=== PATIENT | male | born 1940 | race Caucasian/White ===

== ENCOUNTER 2016-12-05 17:00 | Inpatient (IN) | payer MEDICARE ==
[~2016-12-05 17:00] MED LIST: ACETAMINOPHEN325 M2 PO; ACETAMINOPHEN500 M4 PO; ALDACTONE25 M1 PO; AMLODIPINE BESY10 M1 PO; ATORVASTATIN; ATORVASTATIN CA10 MG PO; BACTRIM DS TABL1 TAB PO; COLACE100 MG PO; COREG3.125 M1 PO; COUMADIN7.5 M1 PO; DIOVAN160 M PO; DIOVAN160 M1 PO; DIOVAN80 M1 PO; DOC-Q-LACE100 M1 PO; DOC-Q-LACE100 M2 PO; DOC-Q-LACE100 MG; DOCUSATE; FINASTERIDE5 M2 PO; FLOMAX0.4 M1 PO; FLONASE ALLERG9.9 ML; FUROSEMIDE40 M1 PO; FUROSEMIDE40 M2 PO; GABAPENTIN; GABAPENTIN300 M1 PO; GABAPENTIN300 MG PO; GLUCOPHAGE1000 M1 PO; GLUCOPHAGE1000 MG; GLUCOPHAGE1000 MG PO; GLUCOPHAGE500 M3 PO; IPRAT-ALBUT 0.5-3 ML IH; LASIX; LASIX40 MG; LATANOPROST2.5 ML EACH EYE; LEVOTHROID112 MCG PO; LEVOTHROID75 MCG PO; LEVOTHYROXINE; LEVOTHYROXINE112 MC3 PO; LEVOXYL50 MCG; LIPITOR10 M1 PO; LIPITOR10 MG; LIPITOR10 MG PO; METFORMIN HCL1000 MG PO; MINOCIN100 MG; MIRALAX17 G2 PO; NEURONTIN300 MG; NEURONTIN300 MG PO; NITROGLYCERIN0.4 M2 SL; NORCO 5/325 TAB1 TAB PO; NORVASC10 M1 PO; NORVASC10 MG PO; NYSTATIN1 EA10 TP; OMEPRAZOLE40 M2 PO; PEN-VEE K500 MG; SENOKOT-S TABL1 EACH PO; SMZ-TMP DS 800-1 TAB PO; TORSEMIDE100 M1 PO; ULTRAM50 M1 PO; WARFARIN SODIU7.5 M2 PO; XALATAN2.5 M1 EACH EYE; XALATAN2.5 ML OP; ZOFRAN4 M1 PO
[2016-12-05 18:04] LABS: BASO % 0.9 % (0-2); EOS % 1.3 % (0-7); EOSINOPHIL ABSOLUTE COUNT 0.1 tho/cmm (0.0-0.7); HCT-HEMATOCRIT 40.2 % (36.0-53.5); HGB-HEMOGLOBIN 12.4 gm/dl (13.5-17.0); IMMATURE GRANULOCYTES ABSOLUTE 0.02 tho/cmm (0-0.03); IMMATURE GRANULOCYTES PERCENT 0.4 % (0-0.3); LYMPH % 21.4 % (20-45); MCH (MEAN CORPUSCULAR HGB) 26.6 pg (28.0-32.0); MCHC MEAN CORPUSCULAR HGB CONC 30.8 % (32.0-36.0); MCV (MEAN CELL VOLUME) 86.3 fl (82.0-96.0); MEAN PLATELET VOLUME 10.6 cmc (9.4-12.4); MONO % 7.1 % (0-12); MONOCYTE ABSOLUTE COUNT 0.3 tho/cmm (0.0-1.2); NEUTROPHIL ABSOLUTE COUNT 3.2 tho/cmm (1.6-8.0); NEUTROPHIL-AUTOMATED 3.2 tho/cmm (1.6-8.0); NEUTROPHILS % 68.9 % (40-80); PLATELET COUNT 173 tho/cmm (150-450); RED BLOOD COUNT 4.66 mil/cmm (4.40-5.70); RED CELL DISTRIBUTION WIDTH 16.5 % (12.4-16.4); WHITE BLOOD COUNT 4.6 tho/cmm (4.0-10.0)
[2016-12-05 18:16] LABS: ANION GAP 13 mmol/L (0-20); BLOOD UREA NITROGEN 12 mg/dl (6-24); CALCIUM 8.4 mg/dl (8.5-10.5); CARBON DIOXIDE-VENOUS 26 mmol/L (22-32); CHLORIDE 106 mmol/l (96-110); CREATININE 0.89 mg/dl (0.60-1.30); GLUCOSE 156 mg/dL (70-110); POTASSIUM 4.3 mmol/L (3.7-5.1); SODIUM 141 mmol/L (135-145); eGFR VALUE FOR BLACK >90 mL/Min
[2016-12-05 18:37] LABS: INR 2.1 INR (0.9-1.1); PROTHROMBIN TIME 24.4 SECONDS (9.0-13.6)
[2016-12-05] MEDS ORDERED: GLUCOTROL XL2.5 M1 PO (18:39)
[2016-12-06 06:14] LABS: BASO % 0.5 % (0-2); EOS % 2.1 % (0-7); EOSINOPHIL ABSOLUTE COUNT 0.1 tho/cmm (0.0-0.7); HCT-HEMATOCRIT 40.1 % (36.0-53.5); HGB-HEMOGLOBIN 12.3 gm/dl (13.5-17.0); IMMATURE GRANULOCYTES ABSOLUTE 0.02 tho/cmm (0-0.03); IMMATURE GRANULOCYTES PERCENT 0.3 % (0-0.3); LYMPH % 19.1 % (20-45); LYMPH ABSOLUTE COUNT 1.1 tho/cmm (0.8-4.5); MCH (MEAN CORPUSCULAR HGB) 26.3 pg (28.0-32.0); MCHC MEAN CORPUSCULAR HGB CONC 30.7 % (32.0-36.0); MCV (MEAN CELL VOLUME) 85.9 fl (82.0-96.0); MEAN PLATELET VOLUME 10.9 cmc (9.4-12.4); MONO % 9.4 % (0-12); MONOCYTE ABSOLUTE COUNT 0.6 tho/cmm (0.0-1.2); NEUTROPHILS % 68.6 % (40-80); PLATELET COUNT 167 tho/cmm (150-450); RED BLOOD COUNT 4.67 mil/cmm (4.40-5.70); RED CELL DISTRIBUTION WIDTH 16.6 % (12.4-16.4); WHITE BLOOD COUNT 5.9 tho/cmm (4.0-10.0)
[2016-12-06 06:17] LABS: PROTHROMBIN TIME 23.6 SECONDS (9.0-13.6)
[2016-12-06 06:28] LABS: ALBUMIN 3.3 g/dl (3.5-5.0); ALKALINE PHOSPHATASE 114 U/L (33-138); ALT/SGPT 23 U/L (12-78); ANION GAP 12 mmol/L (0-20); AST/SGOT 13 U/L (10-40); BILIRUBIN,TOTAL 0.8 mg/dl (0.0-1.5); BLOOD UREA NITROGEN 14 mg/dl (6-24); CALCIUM 8.7 mg/dl (8.5-10.5); CARBON DIOXIDE-VENOUS 30 mmol/L (22-32); CHLORIDE 106 mmol/l (96-110); CREATININE 0.94 mg/dl (0.60-1.30); GLUCOSE 129 mg/dL (70-110); POTASSIUM 3.7 mmol/L (3.7-5.1); SODIUM 144 mmol/L (135-145); eGFR VALUE FOR BLACK >90 mL/Min
[2016-12-06] MEDS ORDERED: ZYLOPRIM100 M1 PO (13:39)
[2016-12-07 06:12] LABS: ANION GAP 12 mmol/L (0-20); BLOOD UREA NITROGEN 14 mg/dl (6-24); CALCIUM 8.5 mg/dl (8.5-10.5); CARBON DIOXIDE-VENOUS 32 mmol/L (22-32); CHLORIDE 100 mmol/l (96-110); CREATININE 1.01 mg/dl (0.60-1.30); GLUCOSE 118 mg/dL (70-110); POTASSIUM 3.5 mmol/L (3.7-5.1); SODIUM 140 mmol/L (135-145); eGFR VALUE FOR BLACK 83 mL/Min
[2016-12-08 05:11] LABS: ANION GAP 12 mmol/L (0-20); BLOOD UREA NITROGEN 17 mg/dl (6-24); CALCIUM 8.4 mg/dl (8.5-10.5); CARBON DIOXIDE-VENOUS 30 mmol/L (22-32); CHLORIDE 99 mmol/l (96-110); CREATININE 1.03 mg/dl (0.60-1.30); GLUCOSE 139 mg/dL (70-110); POTASSIUM 3.7 mmol/L (3.7-5.1); SODIUM 137 mmol/L (135-145); eGFR VALUE FOR BLACK 81 mL/Min
[2016-12-08 10:31] LABS: T4 (THYROXINE) 8.8 ug/dl (5.0-12.6)
[2016-12-08 10:33] LABS: TSH-THYROID STIMULATING HORM. 3.87 uIU/ml (0.40-3.80)
[2016-12-09 06:03] LABS: ALB/GLOB RATIO 0.9 (0.8-2.0); ALBUMIN 3.2 g/dl (3.5-5.0); ALKALINE PHOSPHATASE 111 U/L (33-138); ALT/SGPT 18 U/L (12-78); ANION GAP 10 mmol/L (0-20); AST/SGOT 14 U/L (10-40); BILIRUBIN,TOTAL 0.8 mg/dl (0.0-1.5); BLOOD UREA NITROGEN 20 mg/dl (6-24); CALCIUM 8.6 mg/dl (8.5-10.5); CARBON DIOXIDE-VENOUS 31 mmol/L (22-32); CHLORIDE 102 mmol/l (96-110); CREATININE 1.04 mg/dl (0.60-1.30); GLUCOSE 191 mg/dL (70-110); POTASSIUM 3.9 mmol/L (3.7-5.1); SODIUM 139 mmol/L (135-145); eGFR VALUE FOR BLACK 80 mL/Min
[2016-12-09 12:46] LABS: INR 1.4 INR (0.9-1.1); PROTHROMBIN TIME 16.4 SECONDS (9.0-13.6)
[2016-12-10 06:27] LABS: ANION GAP 8 mmol/L (0-20); BLOOD UREA NITROGEN 25 mg/dl (6-24); CALCIUM 8.6 mg/dl (8.5-10.5); CARBON DIOXIDE-VENOUS 35 mmol/L (22-32); CHLORIDE 100 mmol/l (96-110); CREATININE 1.04 mg/dl (0.60-1.30); GLUCOSE 159 mg/dL (70-110); INR 1.6 INR (0.9-1.1); POTASSIUM 3.6 mmol/L (3.7-5.1); PROTHROMBIN TIME 18.4 SECONDS (9.0-13.6); SODIUM 139 mmol/L (135-145); eGFR VALUE FOR BLACK 80 mL/Min
[2016-12-11 04:55] LABS: INR 1.6 INR (0.9-1.1); PROTHROMBIN TIME 19.4 SECONDS (9.0-13.6)
[2016-12-11 05:02] LABS: ANION GAP 12 mmol/L (0-20); BLOOD UREA NITROGEN 24 mg/dl (6-24); CALCIUM 8.4 mg/dl (8.5-10.5); CARBON DIOXIDE-VENOUS 30 mmol/L (22-32); CHLORIDE 101 mmol/l (96-110); CREATININE 0.93 mg/dl (0.60-1.30); GLUCOSE 170 mg/dL (70-110); POTASSIUM 3.9 mmol/L (3.7-5.1); SODIUM 139 mmol/L (135-145); eGFR VALUE FOR BLACK >90 mL/Min
[2016-12-12 04:54] LABS: INR 1.7 INR (0.9-1.1); PROTHROMBIN TIME 19.7 SECONDS (9.0-13.6)
[2016-12-12 05:08] LABS: ALB/GLOB RATIO 0.9 (0.8-2.0); ALBUMIN 3.4 g/dl (3.5-5.0); ALKALINE PHOSPHATASE 103 U/L (33-138); ALT/SGPT 24 U/L (12-78); BILIRUBIN,TOTAL 0.9 mg/dl (0.0-1.5); BLOOD UREA NITROGEN 27 mg/dl (6-24); CALCIUM 8.8 mg/dl (8.5-10.5); CARBON DIOXIDE-VENOUS 31 mmol/L (22-32); CHLORIDE 99 mmol/l (96-110); CREATININE 1.13 mg/dl (0.60-1.30); GLUCOSE 177 mg/dL (70-110); SODIUM 136 mmol/L (135-145); eGFR VALUE FOR BLACK 73 mL/Min
[2016-12-12 05:12] LABS: ANION GAP 10 mmol/L (0-20); AST/SGOT 22 U/L (10-40)
[2016-12-12 05:13] LABS: POTASSIUM 3.9 mmol/L (3.7-5.1)
[2016-12-12] MEDS ORDERED: ZESTRIL2.5 M3 PO (10:34)
[2016-12-12] MEDS ORDERED: ALDACTONE25 M1 PO (10:36)
[2016-12-12] MEDS ORDERED: FLUTICASONE PRO16 G1 (10:40)
[2016-12-12] MEDS ORDERED: POTASSIUM CHLO20 ME3 PO (10:51)
[2016-12-12] MEDS ORDERED: DELTASONE20 MG PO (10:58)
[2017-01-02] MEDS ORDERED: ZYLOPRIM100 M1 PO (20:53)
== END 2016-12-12 14:00 | DRG 292 ==
LOC: EDMED 17:00 → EMR2 20:43 → PCUB 21:53
PROVIDERS: Emergency Medicine; Internal Medicine; Internal Medicine Interventional Cardiology; Nurse Practitioner Adult Health; ADMIT Internal Medicine
PROC: 5A09357 Assistance with Respiratory Ventilation, Less than 24 Consecutive Hours, Continuous Positive Airway Pressure (ICD-10-PCS; principal; 2016-12-05)
DX: I11.0 Hypertensive heart disease with heart failure (principal); Z68.44 Body mass index [BMI] 60.0-69.9, adult; I95.9 Hypotension, unspecified; E11.51 Type 2 diabetes mellitus with diabetic peripheral angiopathy without gangrene; E11.42 Type 2 diabetes mellitus with diabetic polyneuropathy; R00.1 Bradycardia, unspecified; E11.65 Type 2 diabetes mellitus with hyperglycemia; I50.33 Acute on chronic diastolic (congestive) heart failure; I48.2 Chronic atrial fibrillation; Z79.01 Long term (current) use of anticoagulants; E66.01 Morbid (severe) obesity due to excess calories; G47.33 Obstructive sleep apnea (adult) (pediatric); Z79.84 Long term (current) use of oral hypoglycemic drugs; Z79.02 Long term (current) use of antithrombotics/antiplatelets; I87.2 Venous insufficiency (chronic) (peripheral); M17.0 Bilateral primary osteoarthritis of knee; M10.9 Gout, unspecified; E03.9 Hypothyroidism, unspecified; H40.9 Unspecified glaucoma
CPT/HCPCS: C8929; G0378; G8978-GP-CJ; G8979-GP-CI; G8987-GO-CJ; G8988-GO-CI; J1815; J1940; J7512